=== PATIENT | male | born 1975 | race Asian ===

== ENCOUNTER 2019-11-08 15:50 | Emergency (ER) | payer SELFPAY ==
--- NOTE | 2019-11-08 16:12 | ED ---
Influenza-Like Illness - HPI Summary HPI Summary: Patient is a 44 y/o M presenting to the ED for a chief complaint of influenza- like symptoms. Patient complains of nasal congestion, sore throat, and cough for the last 4 days. Patient denies fever. No aggravating or alleviating factors are reported. He denies any positive sick contact at home. Recently, patient was visiting [facility] for one month for the and left [place] to return to [place] on 11/02/19. The [facility] Department and the CDC advised the patient to be seen at [facility] to test for possible coronavirus. Any significant PMHx, PSHx, or FMHx is denied. - History of Current Complaint Chief Complaint: EDShortnessOfBreath Time Seen by Provider: 11/08/19 15:52 Hx Obtained From: Patient Onset/Duration: Sudden Onset, Lasting Days, Still Present Severity: Moderate Associated Signs & Symptoms: Cough, Sore Throat - Allergy/Home Medications Allergies/Adverse Reactions: Allergies Allergy/AdvReac Type Severity Reaction Status Date / Time No Known Allergies Allergy Verified 11/08/19 15:56 Home Medications: Home Medications NK [No Home Medications Reported] 11/08/19 [History Confirmed 11/08/19] PMH/Surg Hx/FS Hx/Imm Hx Previously Healthy: Yes Endocrine/Hematology History: Denies: Hx Diabetes Cardiovascular History: Denies: Hx Hypercholesterolemia, Hx Hypertension Sensory History: Denies: Hx Legally Blind, Hx Deafness Opthamlomology History: Denies: Hx Legally Blind EENT History: Denies: Hx Deafness - Surgical History Surgical History: None Surgery Procedure, Year, and Place: None Infectious Disease History: No Infectious Disease History: Reports: Traveled Outside the in Last 30 Days - [place] - Family History Known Family History: Negative: Cardiac Disease, Diabetes, Renal Disease - Social History Occupation: Employed Full-time Lives: Alone Alcohol Use: None Hx Substance Use: No Substance Use Type: Reports: None Hx Tobacco Use: No Smoking Status (MU): Never Smoked Tobacco Review of Systems Negative: Fever Positive: Sore Throat, Other - Positive nasal congestion Positive: Cough All Other Systems Reviewed And Are Negative: Yes Physical Exam - Summary Physical Exam Summary: Constitutional: Well-developed, Well-nourished, Alert. (-) Distressed Skin: Warm, Dry HENT: Normocephalic; Atraumatic Eyes: Conjunctiva normal Neck: Musculoskeletal ROM normal neck. (-) JVD, (-) Stridor, (-) Nuchal rigidity Cardio: Rhythm regular, rate normal, Heart sounds normal; Intact distal pulses; Radial pulses are 2+ and symmetric. (-) Murmur Pulmonary/Chest wall: Effort normal. (-) Respiratory distress, (-) Wheezes, (-) Rales Abd: Soft, (-) tenderness, (-) Distension, (-) Guarding, (-) Rebound Musculoskeletal: (-) Edema Lymph: (-) Cervical adenopathy Neuro: Alert, Oriented x3 Psych: Mood and affect Normal Triage Information Reviewed: Yes Vital Signs On Initial Exam: Initial Vitals Temp Pulse Resp BP Pulse Ox 97.9 F 68 16 169/103 99 11/08/19 15:53 11/08/19 15:53 11/08/19 15:53 11/08/19 15:53 11/08/19 15:53 Vital Signs Reviewed: Yes Procedures - Sedation Patient Received Moderate/Deep Sedation with Procedure: No Diagnostics - Vital Signs Vital Signs Temp Pulse Resp BP Pulse Ox 11/08/19 15:53 97.9 F 68 16 169/103 99 - Laboratory Lab Statement: Any lab studies that have been ordered have been reviewed, and results considered in the medical decision making process. Re-Evaluation - Re-Evaluation First Eval Re-Evaluation Time: 16:18 Change: Unchanged Comment: At 16:18, [facility] recommends to send the swabs to test for pierre virus. Flu Symptom Course/Dx - Course Course Of Treatment: 44-year-old male presenting with cough, sore throat. No fever, well-appearing. Given history of travel to [facility], and CBC recommended testing for coronavirus. Specimen sent. Patient well-appearing and can go home , health department will f/u labwork. - Diagnoses Provider Diagnoses: URI (upper respiratory infection) Discharge ED - Sign-Out/Discharge Documenting (check all that apply): Patient Departure - Discharge - Discharge Plan Condition: Stable Disposition: HOME Patient Education Materials: Upper Respiratory Infection (ED) Referrals: [facility] [Outside] Additional Instructions: You were seen in the emergency department for cough. We sent off some labs for coronavirus, we will call you if these are positive. If any studies were not completed at the time of discharge you will be called with the relevant results. Per the [facility] Department they will call you in approximately one hour after discharge with more follow up instructions. Please continue to quarantine yourself at home, continue to utilize face masks when out of your room. The Health Department will call you daily for updates and to request temperature results and symptoms check. Please follow up with your primary care doctor in next 2-3 days and return to emergency department for worsening cough, fevers, or concerning symptoms. It was a pleasure taking care of you today. - Billing Disposition and Condition Condition: STABLE Disposition: Home - Attestation Statements Document Initiated by Willy: Yes Documenting Scribe: Chikis Marino Provider For Whom Willy is Documenting (Include Credential): Farshad Nunes MD Scribe Attestation: Chikis Lai, scribed for Farshad Nunes MD on 11/08/19 at 1831. Scribe Documentation Reviewed: Yes Provider Attestation: The documentation as recorded by the Chikis castillo accurately reflects the service I personally performed and the decisions made by , Farshad Nunes MD Status of Scribe Document: Viewed
[2019-11-08 16:39] VITALS: BP 117/77
== END 2019-11-08 16:38 | disposition home or self-care (01) ==
LOC: ED 15:50
DX: J06.9 Acute upper respiratory infection, unspecified (principal)
CPT/HCPCS: 99283